=== PATIENT | female | born 2000 ===

== ENCOUNTER 2022-09-01 22:55 | Outpatient (CLI) | payer OTHER ==
[2022-09-01] MEDS ORDERED: PRENATAL TABLE1 EAC1 PO (23:33)
== END 2022-09-02 15:24 | disposition home or self-care (01) ==
LOC: OBS/DEL 22:55
PROVIDERS: ATTEND Obstetrics & Gynecology
DX: O26.893 Other specified pregnancy related conditions, third trimester (principal); Z3A.33 33 weeks gestation of pregnancy

== ENCOUNTER 2022-10-18 13:30 | Inpatient (IN) | payer OTHER ==
[~2022-10-18] VITALS: Ht 154.9 cm; Wt 83.9 kg
[~2022-10-18 13:30] MED LIST: PRENATAL TABLE1 EAC1 PO
== END 2022-10-21 11:58 | disposition home or self-care (01) | DRG 807 ==
LOC: LDR 13:30 → OB/GYN 10-19 15:48
PROVIDERS: ADMIT Obstetrics & Gynecology; ATTEND Obstetrics & Gynecology
PROC: 3E0P7VZ Introduction of Hormone into Female Reproductive, Via Natural or Artificial Opening (ICD-10-PCS; 2022-10-18)
PROC: 4A1HXCZ Monitoring of Products of Conception, Cardiac Rate, External Approach (ICD-10-PCS; 2022-10-18)
PROC: 10E0XZZ Delivery of Products of Conception, External Approach (ICD-10-PCS; principal; 2022-10-19)
PROC: 0HQ9XZZ Repair Perineum Skin, External Approach (ICD-10-PCS; 2022-10-19)
PROC: 0UQMXZZ Repair Vulva, External Approach (ICD-10-PCS; 2022-10-19)
PROC: 3E033VJ Introduction of Other Hormone into Peripheral Vein, Percutaneous Approach (ICD-10-PCS; 2022-10-19)
DX: O70.0 First degree perineal laceration during delivery (principal); Z37.0 Single live birth; O71.82 Other specified trauma to perineum and vulva; O99.824 Streptococcus B carrier state complicating childbirth; Z3A.40 40 weeks gestation of pregnancy; Z20.822 Contact with and (suspected) exposure to COVID-19